=== PATIENT | female | born 1945 | race Caucasian/White ===

== ENCOUNTER 2019-07-13 12:00 | Emergency (ER) | payer OTHER ==
[2019-07-13] MEDS ORDERED: HYDROCODONE/APAP 5/325 MG TAB ONE (13:12)
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
[2019-07-13 14:16] VITALS: BP 145/85; TEMP 98.4; O2SAT 98
== END 2019-07-13 14:02 | disposition home or self-care (01) ==
LOC: ER 12:00
DX: M25.562 Pain in left knee (principal); V19.3XXA Pedal cyclist (driver) (passenger) injured in unspecified nontraffic accident, initial encounter; Y93.55 Activity, bike riding; Y92.9 Unspecified place or not applicable; I10 Essential (primary) hypertension; Z88.8 Allergy status to other drugs, medicaments and biological substances
CPT/HCPCS: 99284